=== PATIENT | female | born 1985 | race Caucasian/White ===

== ENCOUNTER 2024-09-19 21:02 | Emergency (ER) | payer MEDICAID, SELFPAY ==
[2024-09-19 21:02] VITALS: BMI 27.9
[2024-09-19 21:58] VITALS: BP 168/106; PULSE 94; RESP 20; TEMP 36.7; O2SAT 99
--- NOTE | 2024-09-19 22:11 | PD.EDEAR ---
ED Ear RME/HPI General Chief complaint: Ear Stated complaint: RIGHT EAR PAIN Time Seen by Provider: 09/19/24 21:18 Arrival date/time: 09/19/24 21:02 39-year-old female reports with complaints of sudden onset of right ear pain that developed this morning. She denies any loss of hearing but states that she does have some clogged sensation to the ear. Patient denies fever chills headache dizziness sore throat cough or congestion. Patient states that she is taken some [id number] medications with no improvement of Limitations: no limitations Related Data Previous Rx's ?Medication ?Instructions ?Recorded albuterol sulfate 90 mcg/actuation 2 puff inhalation QID PRN 08/18/19 aerosol inhaler (Ventolin HFA) shortness of breath #8.5 grams azithromycin 250 mg tablet See Rx Instructions .Route 08/18/19 (Zithromax Z-Conor) .COMPLEX #6 tabs ibuprofen 800 mg tablet 800 mg PO TID PRN pain #30 tabs 05/24/21 cephalexin 500 mg capsule 500 mg PO BID 10 days #20 caps 09/19/24 ibuprofen 800 mg tablet 800 mg PO TID PRN pain #30 tabs 09/19/24 Allergies Allergy/AdvReac Type Severity Reaction Status Date / Time No Known Allergies Allergy Verified 09/19/24 21:04 Review of Systems Constitutional Constitutional: Denies chills, Denies fever(s) and Denies headache(s) ENT Ears, Nose, Mouth, and Throat: Denies ear discharge, Reports otalgia, Denies headache(s) and Denies vertigo Cardiovascular Cardiovascular: Denies chest pain and Denies dyspnea Respiratory Respiratory: Denies cough and Denies dyspnea Integumentary/Breasts Skin/Breast: Denies rash and Denies skin pain Neurologic Neurologic: Denies headache(s) and Denies vertigo Hematologic/Lymphatic Hematologic/Lymphatic: Denies easy bleeding and Denies easy bruising Past Medical History Past Medical History CARDIAC: Negative Congestive Heart Failure RESPIRATORY: Negative Chronic Obstructive Pulmonary Disease (COPD) GENITOURINARY: Negative Renal Disease ENDOCRINE: Negative Diabetes Mellitus Type 1 or Diabetes Mellitus Type 2 Surgical History SURGICAL: Positive Tubal Ligation (fallopian tube laparascopy) Social History SMOKING STATUS: Never smoker ED Exam General Limitations: Present no limitations General appearance: Present alert and in no apparent distress Head Head exam: Present atraumatic Eye Eye exam: Present normal appearance, PERRL and EOMI ENT ENT exam: Present normal exam, normal oropharynx and mucous membranes moist; Absent TM's normal bilaterally (Right TM is erythematous and bulging) Neck Neck exam: Present normal inspection, full ROM and trachea midline Chest Chest inspection: Present normal inspection and symmetric chest wall rise Respiratory Respiratory exam: Present normal lung sounds bilaterally Cardiovascular Cardiovascular exam: Present regular rate, normal rhythm and normal heart sounds Neurological Exam Neurological exam: Present alert, oriented X3 and CN II-XII intact Psychiatric Psychiatric exam: Present normal affect and normal mood Skin Skin exam: Present warm, dry, intact and normal color Course Quality Measures none Orders Category Date Time Status cephALEXin [Keflex] Med 09/19/24 22:09 Discontinued 500 mg PO X1 ONE traMADol HCL [Ultram] Med 09/19/24 22:09 Once 50 mg PO X1 ONE Vital Signs Vital signs: Vital Signs Temperature 98.0 F 09/19/24 21:58 Pulse Rate 94 09/19/24 21:58 Respiratory Rate 20 09/19/24 21:58 Blood Pressure 168/106 H 09/19/24 21:58 Pulse Oximetry (%) 99 09/19/24 21:58 Oxygen Delivery Method Room Air 09/19/24 21:58 Ear Patient data External records reviewed:: None Clinical information provided by:: patient Social determinants that could affect healthcare access:: none Patient has the following chronic illnesses:: none How is presenting disease/condition affected by chronic disease/condition?: no chronic disease Evaluation data The following diagnostics were reviewed and interpreted by me:: other (specify) (none) Lab and/or radiology exams considered but not ordered:: none Interpretation Summary: n/a Medications / Prescriptions Medications or Prescriptions considered but not ordered:: none Medication administrations:: Medication Administration History Discontinued Medications Cephalexin HCl (Cephalexin 250 Mg Capsule) 500 mg PO X1 ONE Stop: 09/19/24 22:10 as above Consultations Consultation(s) initiated? (list below): No Diagnosis Most likely diagnosis given after review of the tests above:: Right otitis media Admission Indicated Admission indicated?: not indicated Admission Request Was there a request for admission?: No Disposition Plan Disposition Plan: Discharge Discharge Attestation Discharge Attestation: The patient and all family members were given an opportunity to ask questions and understood the discharge instructions. Discharge instructions specifically effects, indications for sooner follow up or return to the emergency department, and the expected course of current diagnosis. Patient condition: Stable Discharge Plan Plan Patient Disposition: HOME (Self Care) Prescriptions/Referrals Prescriptions/Med Rec: New ibuprofen 800 mg tablet 800 mg PO TID PRN (Reason: pain) Qty: 30 0RF cephalexin 500 mg capsule 500 mg PO BID 10 Days Qty: 20 0RF No Action azithromycin [Zithromax Z-Conor] 250 mg tablet See Rx Instructions .Route .COMPLEX Qty: 6 0RF Dose Instruction: Take (2) 250 mg tablets day 1 take (1) tablet days 2 through 5 Rx Instructions: Take (2) 250 mg tablets day 1 take (1) tablet days 2 through 5 albuterol sulfate [Ventolin HFA] 90 mcg/actuation HFA aerosol inhaler 2 puff INH QID PRN (Reason: shortness of breath) Qty: 8.5 0RF ibuprofen 800 mg tablet 800 mg PO TID PRN (Reason: pain) Qty: 30 0RF Problem List Clinical Impression: Otitis media Patient/Caregiver Discharge Instructions Discharge Activity: activity as tolerated Education Materials: ED Otitis Media Antibiotic ... Additional Instructions: Take medication as directed hydrate well follow-up for primary care provider if no improvement with medication in 3 days Print Language: Kinyarwanda Stand Alone Forms: Ceci Award Info., Patient Portal Info Letter
[2024-09-19] MEDS: cephALEXin 250 MG CAPSULE 500 MG PO (22:19)
[2024-09-19] MEDS: IBUPROFEN TAB 400 MG TABLET 800 MG PO (22:19)
== END 2024-09-19 22:23 | disposition home or self-care (01) ==
LOC: SERX 22:33
PROVIDERS: Emergency Provider Emergency Medicine; PCP Family Medicine
DX: H66.91 Otitis media, unspecified, right ear (principal)
CPT/HCPCS: 99282; A9270

== ENCOUNTER 2025-02-18 15:40 | Emergency (ER) | payer MEDICAID, SELFPAY ==
[2025-02-18 15:41] VITALS: BMI 33.2
[2025-02-18 16:04] VITALS: BP 146/98; PULSE 88; RESP 18; TEMP 37; O2SAT 97
--- NOTE | 2025-02-18 16:38 | PD.EDSKIN ---
ED Skin Abcess FB-RME/HPI General Chief complaint: Skin/Abscess/Foreign Body Stated complaint: SORE LEFT WRIST x 2 DAYS Time Seen by Provider: 02/18/25 15:48 Arrival date/time: 02/18/25 15:40 This is a 40-year-old female that comes into the emergency room with complaints of an area approximately 2 cm x 2 cm thick on left forearm. Mildly erythemic, raised and scaly. Area appears circular and raised border. Patient states it feels very itchy. Patient has no other complaints. Related Data Previous Rx's ?Medication ?Instructions ?Recorded albuterol sulfate 90 mcg/actuation 2 puff inhalation QID PRN 08/18/19 aerosol inhaler (Ventolin HFA) shortness of breath #8.5 grams azithromycin 250 mg tablet See Rx Instructions .Route 08/18/19 (Zithromax Z-Conor) .COMPLEX #6 tabs ibuprofen 800 mg tablet 800 mg PO TID PRN pain #30 tabs 05/24/21 ibuprofen 800 mg tablet 800 mg PO TID PRN pain #30 tabs 09/19/24 terbinafine HCl 1 % topical cream 1 applic topical BID #15 grams 02/18/25 Allergies Allergy/AdvReac Type Severity Reaction Status Date / Time No Known Allergies Allergy Verified 02/18/25 15:42 Course Vital Signs Vital signs: Vital Signs Temperature 98.6 F 02/18/25 16:04 Pulse Rate 88 02/18/25 16:04 Respiratory Rate 18 02/18/25 16:04 Blood Pressure 146/98 H 02/18/25 16:04 Pulse Oximetry (%) 97 02/18/25 16:04 Oxygen Delivery Method Room Air 02/18/25 16:04 Skin / Abscess / Foreign Body MDM Narrative MDM Narrative:: Will treat patient for ringworm. Will send patient home with topical cream to put over area. Patient told to follow-up with primary provider in 1 to 2 days. Come back to emergency room symptoms change Discharge Plan Plan Patient Disposition: HOME (Self Care) Patient condition on transfer: Stable Prescriptions/Referrals Prescriptions/Med Rec: New terbinafine HCl 1 % cream 1 applic topical BID Qty: 15 0RF No Action azithromycin [Zithromax Z-Conor] 250 mg tablet See Rx Instructions .Route .COMPLEX Qty: 6 0RF Dose Instruction: Take (2) 250 mg tablets day 1 take (1) tablet days 2 through 5 Rx Instructions: Take (2) 250 mg tablets day 1 take (1) tablet days 2 through 5 albuterol sulfate [Ventolin HFA] 90 mcg/actuation HFA aerosol inhaler 2 puff INH QID PRN (Reason: shortness of breath) Qty: 8.5 0RF ibuprofen 800 mg tablet 800 mg PO TID PRN (Reason: pain) Qty: 30 0RF ibuprofen 800 mg tablet 800 mg PO TID PRN (Reason: pain) Qty: 30 0RF Referrals: No Primary/Family,Physician [Primary Care Provider] - In 1 week Problem List Clinical Impression: Tinea corporis Patient/Caregiver Discharge Instructions Discharge Activity: activity as tolerated Education Materials: ED Ringworm, Skin Additional Instructions: Follow up with primary provider in 1-2 days. Come back to ED if symptoms change or worsen Print Language: Yoruba Stand Alone Forms: Ceci Award Info., Patient Portal Info Letter PA/KALEN Supervising Physician PA/MOTION PICTURE NARRATOR Supervising Physician: JOSEFA
== END 2025-02-18 17:13 | disposition home or self-care (01) ==
PROVIDERS: Emergency Provider Emergency Medicine
DX: B35.4 Tinea corporis (principal)
CPT/HCPCS: 99281

== ENCOUNTER 2025-03-25 17:07 | Emergency (ER) | payer MEDICAID, SELFPAY ==
[2025-03-25 17:27] VITALS: BP 149/98; PULSE 80; RESP 19; TEMP 36.6; O2SAT 98; BMI 36.6
--- NOTE | 2025-03-25 17:32 | EDNOTE_ITS ---
ED Ear RME/HPI General Chief complaint: Ear Stated complaint: RIGHT EAR PAIN Time Seen by Provider: 03/25/25 17:10 Arrival date/time: 03/25/25 17:07 40-year-old female presents emergency department for complaints of right ear pain right ear discharge ongoing x 2 days Limitations: no limitations Related Data Previous Rx's ?Medication ?Instructions ?Recorded albuterol sulfate 90 mcg/actuation 2 puff inhalation Q ID PRN 08/18/19 aerosol inhaler (Ventolin HFA) shortness of breath #8. 5 grams azithromycin 250 mg tablet See Rx Instructions .Route 08/18/19 (Zithromax Z-Conor) .COMPLEX #6 tabs ibuprofen 800 mg tablet 800 mg PO TID PRN pain #30 t abs 05/24/21 ibuprofen 800 mg tablet 800 mg PO TID PRN pain #30 t abs 09/19/24 terbinafine HCl 1 % topical cream 1 applic topical BID #15 grams 02/18/25 amoxicillin 875 mg-potassium 1 tab PO BID 7 days #14 t abs 03/25/25 clavulanate 125 mg tablet ibuprofen 800 mg tablet 800 mg PO TID PRN pain #30 t abs 03/25/25 ofloxacin 0.3 % ear drops 10 drop otic (ear) QDAY 10 d ays 03/25/25 #10 mL Allergies Allergy/AdvReac Type Severity Reaction Status Date / Time No Known Allergies Allergy Verified 03/25/25 17:09 Review of Systems Review of Systems Systems Reviewed: All systems reviewed, normal except as documented Constitutional Constitutional: Reports system reviewed and no additional complaints, except as documented, Denies fever(s) and Denies headache(s) Eyes Eyes: Reports system reviewed and no additional complaints, except as documented and Denies blurry vision ENT Ears, Nose, Mouth, and Throat: Reports system reviewed and no additional complaints, except as documented, Reports ear discharge, Reports otalgia, Denies headache(s), Denies nasal congestion and Denies nasal discharge Cardiovascular Cardiovascular: Reports system reviewed and no additional complaints, except as documented, Denies chest pain and Denies dyspnea Respiratory Respiratory: Reports system reviewed and no additional complaints, except as documented, Denies chest congestion, Denies cough and Denies dyspnea Gastrointestinal Gastrointestinal: Reports system reviewed and no additional complaints, except as documented and Denies abdominal pain Integumentary/Breasts Skin/Breast: Reports system reviewed and no additional complaints, except as documented and Denies rash Neurologic Neurologic: Reports system reviewed and no additional complaints, except as documented, Reports as per HPI and Denies headache(s) Past Medical History Past Medical History CARDIAC: Negative Congestive Heart Failure RESPIRATORY: Negative Chronic Obstructive Pulmonary Disease (COPD) GENITOURINARY: Negative Renal Disease ENDOCRINE: Negative Diabetes Mellitus Type 1 or Diabetes Mellitus Type 2 Surgical History SURGICAL: Positive Tubal Ligation (fallopian tube laparascopy) Social History SMOKING STATUS: Never smoker ED Exam General Limitations: Present no limitations General appearance: Present alert and in no apparent distress Head Head exam: Present atraumatic Eye Eye exam: Present normal appearance, PERRL and EOMI ENT ENT exam: Present mucous membranes moist Expanded ENT Exam TM/Canal exam: Right TM: erythema, bulging, canal discharge and canal tenderness Neck Neck exam: Present normal inspection, full ROM and trachea midline Chest Chest inspection: Present normal inspection and symmetric chest wall rise Respiratory Respiratory exam: Present normal lung sounds bilaterally Cardiovascular Cardiovascular exam: Present regular rate, normal rhythm and normal heart sounds Abdominal Exam Abdominal exam: Present soft and normal bowel sounds Extremities Exam Extremities exam: Present normal inspection and full ROM Back Exam Back exam: Present normal inspection and full ROM Neurological Exam Neurological exam: Present alert, oriented X3 and CN II-XII intact Psychiatric Psychiatric exam: Present normal affect and normal mood Skin Skin exam: Present warm, dry, intact and normal color Course Quality Measures none Vital Signs Vital signs: Vital Signs Temperature 97.8 F 03/25/25 17:27 Pulse Rate 80 03/25/25 17:27 Respiratory Rate 19 03/25/25 17:27 Blood Pressure 149/98 H 03/25/25 17:27 Pulse Oximetry (%) 98 03/25/25 17:27 O2 saturation 98% on room air within normal limits Ear Patient data External records reviewed:: [facility] previous records Clinical information provided by:: patient Social determinants that could affect healthcare access:: none Patient has the following chronic illnesses:: None How is presenting disease/condition affected by chronic disease/condition?: no chronic disease Evaluation data The following diagnostics were reviewed and interpreted by me:: other (specify) (N/A) Lab and/or radiology exams considered but not ordered:: Consider not ordered Interpretation Summary: N/A Medications / Prescriptions Medications or Prescriptions considered but not ordered:: Given Medication administrations:: Given Consultations Consultation(s) initiated? (list below): No Diagnosis Most likely diagnosis given after review of the tests above:: Otitis externa Admission Indicated Admission indicated?: not indicated Admission Request Was there a request for admission?: No Disposition Plan Disposition Plan: Discharge Discharge Attestation Discharge Attestation: The patient and all family members were given an opportunity to ask questions and understood the discharge instructions. Discharge instructions specifically effects, indications for sooner follow up or return to the emergency department, and the expected course of current diagnosis. Patient condition: Stable Medical Decision Making MDM Narrative MDM Narrative: 40-year-old female presents emergency department for complaints of right ear pain right ear discharge ongoing x 2 days On exam patient well-appearing patient does not appear ill or toxic in no acute distress On exam patient has right otitis externa Patient discharged home in no distress to follow-up with primary care doctor in the next 24 to 48 hours and for any worsening symptoms to return to the ER immediately Differential Diagnosis Differential Diagnosis: Otitis media, otitis externa, eustachian tube dysfunction Medical Records Medical records reviewed: Yes I reviewed the patient's medical records. Discharge Plan Plan Patient Disposition: HOME (Self Care) Discharge Disposition comment: Stable Prescriptions/Referrals Prescriptions/Med Rec: New ibuprofen 800 mg tablet 800 mg PO TID PRN (Reason: pain) Qty: 30 0RF ofloxacin 0.3 % drops 10 drop otic (ear) QDAY 10 Days Qty: 10 0RF amoxicillin-pot clavulanate 875-125 mg tablet 1 tab PO BID 7 Days Qty: 14 0RF No Action azithromycin [Zithromax Z-Conor] 250 mg tablet See Rx Instructions .Route .COMPLEX Qty: 6 0RF Dose Instruction: Take (2) 250 mg tablets day 1 take (1) tablet days 2 through 5 Rx Instructions: Take (2) 250 mg tablets day 1 take (1) tablet days 2 through 5 albuterol sulfate [Ventolin HFA] 90 mcg/actuation HFA aerosol inhaler 2 puff INH QID PRN (Reason: shortness of breath) Qty: 8.5 0RF ibuprofen 800 mg tablet 800 mg PO TID PRN (Reason: pain) Qty: 30 0RF ibuprofen 800 mg tablet 800 mg PO TID PRN (Reason: pain) Qty: 30 0RF terbinafine HCl 1 % cream 1 applic topical BID Qty: 15 0RF Problem List Clinical Impression: Otitis externa Patient/Caregiver Discharge Instructions Education Materials: Anatomy of the Ear Additional Instructions: Please follow up with your primary care doctor in the next 24-48hrs for any worsening symptoms return here immediately Print Language: Irish Stand Alone Forms: Ceci Award Info., Patient Portal Info Letter PA/LOCKSTITCH POCKET SETTER Supervising Physician PA/LOCKSTITCH POCKET SETTER Supervising Physician: Dr. mosquera
== END 2025-03-25 17:52 | disposition home or self-care (01) ==
LOC: SERX 17:45
PROVIDERS: Emergency Provider Family Medicine
DX: H60.91 Unspecified otitis externa, right ear (principal)
CPT/HCPCS: 99282